=== PATIENT | male | born 1955 | race Caucasian/White ===

== ENCOUNTER 2021-03-29 13:16 | Emergency (ER) | payer OTHER, MEDICAID ==
[~2021-03-29] VITALS: Ht 177.8 cm; Wt 99.8 kg
[2021-03-29 14:18] VITALS: BP 129/85
--- NOTE | 2021-03-29 14:18 | NUR ---
PT TO WAIT IN LOBBY
[2021-03-29 14:48] LABS: BASOPHILS # (AUTO) 0.1 K/uL (0.00-0.22); BASOPHILS % (AUTO) 0.5 % (0.0-2.0); EOSINOPHILS # (AUTO) 0.3 K/uL (0-0.4); EOSINOPHILS % (AUTO) 2.8 % (0.0-4.0); HEMATOCRIT 28.6 % (36-52); HEMOGLOBIN 9.5 g/dL (12.0-18.0); LYMPHOCYTES # (AUTO) 1.1 K/uL (2.0-11.5); LYMPHOCYTES % (AUTO) 10.6 % (20.5-51.1); MEAN CORPUSCULAR HEMOGLOBIN 28 pg (27-31); MEAN CORPUSCULAR HGB CONC 33 g/dL (33-37); MEAN CORPUSCULAR VOLUME 84.7 fL (80-94); MONOCYTES # (AUTO) 0.7 K/uL (0.8-1.0); MONOCYTES % (AUTO) 6.6 % (1.7-9.3); NEUTROPHILS # (AUTO) 8.1 K/uL (1.8-7.7); NEUTROPHILS % (AUTO) 79.5 % (42.2-75.2); PLATELET COUNT (AUTO) 304 K/uL (140-450); RED BLOOD CELL COUNT(AUTO) 3.38 MIL/uL (4.20-6.10); RED CELL DISTRIBUTION WIDTH 16.1 % (11.6-13.7); WHITE BLOOD COUNT (AUTO) 10.2 K/uL (4.8-10.8)
[2021-03-29] MEDS ORDERED: FUROSEMIDE 40 MG/4 ML VIAL IVP ONE (15:40)
[2021-03-29 15:46] LABS: ALBUMIN 2.6 g/dL (3.4-5.0); ANION GAP 16.6 (8-16); CARBON DIOXIDE 22.3 mmol/L (21-32); CREATININE 3.7 mg/dL (0.6-1.3); POTASSIUM 3.9 mmol/L (3.5-5.1); TOTAL BILIRUBIN 0.6 mg/dL (0.0-1.0)
--- NOTE | 2021-03-29 21:06 | NUR ---
PATIENT LEFT WITHOUT BEING SEEN BY DR. MOSCOSO. NO FURTHER CARE PROVIDED FOR PATIENT.
--- NOTE | 2021-03-29 21:06 | NUR ---
BETI DIAL, PT LEFT LOBBY AT 193
== END 2021-03-29 21:06 | disposition left against medical advice (07) ==
LOC: MED 13:16
DX: I50.9 Heart failure, unspecified (principal); E87.70 Fluid overload, unspecified; J44.9 Chronic obstructive pulmonary disease, unspecified; N18.9 Chronic kidney disease, unspecified
CPT/HCPCS: 36415; 71045; 80053; 84484; 85025; 93005; 96374; 99285; J1940